=== PATIENT | male | born 1970 | race Caucasian/White ===

== ENCOUNTER 2016-07-12 11:27 | Emergency (ER) | payer OTHER ==
[2016-07-12] MEDS ORDERED: OPTIRAY 350 100 ML VIAL HMH IV ONE (11:28)
== END 2016-07-12 18:13 | disposition home or self-care (01) ==
LOC: ER 11:27
DX: K57.32 Diverticulitis of large intestine without perforation or abscess without bleeding (principal); K21.9 Gastro-esophageal reflux disease without esophagitis; I10 Essential (primary) hypertension
CPT/HCPCS: 36415; 74177; 80053; 81003; 83690; 85025; 99284; Q9967